=== PATIENT | male | born 1965 | race Caucasian/White ===

== ENCOUNTER 2021-12-16 07:47 | Inpatient (IN) | payer BC ==
[2021-12-16] MEDS ORDERED: Dextrose 5%-0.9% NaCl 1,000 ML ONE (08:32)
[2021-12-16] MEDS ORDERED: Pantoprazole 40 MG Vial ONE ×2 (08:32→20:32)
[2021-12-16 08:51] LABS: ESTIMATED GFR 54 mL/min (>60)
[2021-12-16] MEDS ORDERED: Pantoprazole 40 MG Vial IV ONE (09:00)
[2021-12-16] MEDS ORDERED: Pantoprazole 80 MG in Sodium Chloride 0.9% 100 ML IV ONE (09:08)
[2021-12-16] MEDS ORDERED: Dextrose 5%-0.9% NaCl 1,000 ML IV ONE (09:08)
[2021-12-16] MEDS ORDERED: Lactated Ringers 1,000 ML ONE ×3 (11:13→23:21)
[2021-12-16] MEDS ORDERED: Lactated Ringers 1,000 ML IV ONE (11:15)
[2021-12-16] MEDS ORDERED: Potassium Chloride 100 ML ONE (16:26)
[2021-12-16] MEDS ORDERED: Potassium Chloride 100 ML IV ONE (16:30)
[2021-12-16] MEDS ORDERED: Sodium Chloride 0.9% 250 ML ONE (17:59)
[2021-12-17] MEDS ORDERED: Sodium Chloride 0.9% 500 ML ONE (04:04)
[2021-12-17] MEDS ORDERED: Pantoprazole 40 MG Vial ONE (09:15)
[2021-12-17] MEDS ORDERED: Sodium Chloride 0.9% 250 ML ONE (10:00)
[2021-12-17] MEDS ORDERED: Propofol 200 MG/20 ML SDV ONE (10:09)
[2021-12-17] MEDS ORDERED: Lidocaine 1% 4 ML ONE (10:09)
[2021-12-17] MEDS ORDERED: fentaNYL 100 MCG/2 ML SDV ONE (10:10)
[2021-12-17] MEDS ORDERED: Lactated Ringers 1,000 ML IV ONE (15:03)
[2021-12-17] MEDS ORDERED: Pantoprazole 40 MG Vial IV ONE (20:35)
[2021-12-18] MEDS ORDERED: HYDROmorphone 0.5 MG/0.5 ML Syringe IV ONE ×3 (01:30→19:58)
[2021-12-18] MEDS ORDERED: Pantoprazole 40 MG Vial IV ONE ×2 (09:00→21:00)
[2021-12-18] MEDS ORDERED: Furosemide 20 MG/2 ML VIAL IV ONE ×2 (11:24→14:02)
[2021-12-18] MEDS ORDERED: Ondansetron 4 MG/2 ML SDV IV ONE (19:59)
[2021-12-20] MEDS ORDERED: HYDROmorphone 0.5 MG/0.5 ML Syringe IV ONE (04:55)
[2021-12-20] MEDS ORDERED: Acetaminophen 325 MG Tab PO ONE ×2 (08:47→16:03)
[2021-12-20] MEDS ORDERED: Lactated Ringers 1,000 ML IV ONE (08:47)
[2021-12-20] MEDS ORDERED: Lidocaine 4% 1 each Patch TOP ONE (09:00)
[2021-12-20] MEDS ORDERED: Pantoprazole 40 MG Vial IV ONE ×2 (09:00→21:00)
[2021-12-20] MEDS ORDERED: Potassium Chloride 20 MEQ Tab.ER PO ONE (16:00)
[2021-12-20] MEDS ORDERED: oxyCODONE 5 MG Tab PO ONE (21:42)
== END 2021-12-21 13:30 | disposition still patient (30) | DRG 663 ==
LOC: JD.ED 07:47 → JD.ZCENSUS 15:20 → JD.ED 15:30
PROVIDERS: ATTEND Internal Medicine
PROC: 30233N1 Transfusion of Nonautologous Red Blood Cells into Peripheral Vein, Percutaneous Approach (ICD-10-PCS; 2021-12-16)
PROC: 30233K1 Transfusion of Nonautologous Frozen Plasma into Peripheral Vein, Percutaneous Approach (ICD-10-PCS; 2021-12-16)
PROC: 0DB38ZX Excision of Lower Esophagus, Via Natural or Artificial Opening Endoscopic, Diagnostic (ICD-10-PCS; principal; 2021-12-17)
PROC: 0DB68ZX Excision of Stomach, Via Natural or Artificial Opening Endoscopic, Diagnostic (ICD-10-PCS; 2021-12-17)
DX: D62 Acute posthemorrhagic anemia (principal); K20.91 Esophagitis, unspecified with bleeding; I10 Essential (primary) hypertension; K44.9 Diaphragmatic hernia without obstruction or gangrene; K31.89 Other diseases of stomach and duodenum; N17.9 Acute kidney failure, unspecified; E87.6 Hypokalemia; E78.5 Hyperlipidemia, unspecified; Z79.899 Other long term (current) drug therapy
CPT/HCPCS: 00731; 36415; 36430; 80048; 80053; 80076; 81001; 83690; 83735; 85018; 85025; 85610; 85730; 86140; 86850; 86900; 86901; 86922; 93005; 96365; 96366; 96376; 99285-25; A9270-GY; C9113; J1170; J1940; J2405; J2704; J3010; J3480; J7042; J7120; P9016; P9017

== ENCOUNTER 2022-01-05 08:41 | Day surgery (SDC) | payer BC ==
[~2022-01-05 08:41] MED LIST: Lactated Ringers 1,000 ML IV SCH; Lidocaine 1%/Sod Bicarbonate in NS 8.4% 1 ML Syringe IDERM PRN; Sodium Chloride 0.9% 10 ML Syringe FLUSH PRN; Sodium Chloride 0.9% 10 ML Syringe FLUSH SCH
[2022-01-05] MEDS ORDERED: Rocuronium 50 MG/5 ML Vial ONE (09:43)
[2022-01-05] MEDS ORDERED: Ondansetron 4 MG/2 ML SDV ONE (09:43)
[2022-01-05] MEDS ORDERED: Propofol 200 MG/20 ML SDV ONE (09:44)
[2022-01-05] MEDS ORDERED: Midazolam 1 MG/ML 2 ML SDV ONE (09:44)
[2022-01-05] MEDS ORDERED: fentaNYL 100 MCG/2 ML SDV ONE (09:44)
[2022-01-05] MEDS ORDERED: Lidocaine 1% 4 ML ONE (09:45)
[2022-01-05 09:55] LABS: ESTIMATED GFR 78 mL/min (>60)
[2022-01-05] MEDS ORDERED: Lidocaine 1% with EPINEPHrine 1:100,000 10 ML MDV ONE ×2 (10:31→10:32)
[2022-01-05] MEDS ORDERED: Bupivacaine 0.25%/EPINEPHrine 1:200,000 30 ML SDV ONE (10:31)
[2022-01-05] MEDS ORDERED: Lidocaine 1% 2 ML ONE ×3 (12:29→12:53)
[2022-01-05] MEDS ORDERED: EPINEPHrine 1 MG/ML SDV ONE (12:30)
[2022-01-05] MEDS ORDERED: Sodium Chloride 0.9% 50 ML SDV ONE (12:32)
[2022-01-05] MEDS ORDERED: Phenylephrine HCl In 0.9% NaCl 1 MG/10 ML Vial ONE (12:36)
[2022-01-05] MEDS ORDERED: Neostigmine Methylsulfate 10 MG/10 ML MDV ONE (12:56)
[2022-01-05] MEDS ORDERED: Ondansetron 4 MG/2 ML SDV IVPUSH PRN (13:22)
[2022-01-05] MEDS ORDERED: HYDROmorphone 0.5 MG/0.5 ML Syringe IVPUSH PRN (13:22)
[2022-01-05] MEDS ORDERED: fentaNYL 100 MCG/2 ML SDV IVPUSH PRN (13:22)
== END 2022-01-05 15:05 | disposition home or self-care (01) ==
LOC: JD.SDS 08:41
PROVIDERS: ATTEND Surgery
DX: C49.A2 Gastrointestinal stromal tumor of stomach (principal); I10 Essential (primary) hypertension; E78.00 Pure hypercholesterolemia, unspecified; Z91.048 Other nonmedicinal substance allergy status; Z79.899 Other long term (current) drug therapy; Z98.890 Other specified postprocedural states
CPT/HCPCS: 36415; 43251; 80053; 85025; 86850; 86900; 86901; J0171; J2250; J2405; J2704; J2710; J3010; J7120; 00731

== ENCOUNTER 2023-02-12 17:37 | Observation (INO) | payer BC ==
[2023-02-12] MEDS ORDERED: Lactated Ringers 1,000 ML IV ONE (18:06)
[2023-02-12] MEDS ORDERED: Sodium Chloride 0.9% 10 ML Syringe FLUSH PRN (18:07)
[2023-02-12] MEDS ORDERED: Apixaban 5 MG Tab PO ONE (18:11)
[2023-02-12] MEDS ORDERED: Digoxin 500 MCG/2 ML Amp IVPUSH ONE (18:11)
[2023-02-12] MEDS ORDERED: Sodium Chloride 0.9% 1,000 ML IV ONE (18:12)
[2023-02-12 18:20] LABS: BASOPHILS PERCENT AUTO 0.3 % (0.0-1.0); EOSINOPHILS ABSOLUTE AUTO 0.1 K/mm3 (0.0-0.4); EOSINOPHILS PERCENT AUTO 1.1 % (0.0-6.0); HEMATOCRIT 48.7 % (42.0-52.0); HEMOGLOBIN 16.3 gm/dl (14.0-18.0); IMMATURE GRAN ABSOLUTE AUTO 0.03 K/mm3 (0.00-0.05); IMMATURE GRAN PERCENT AUTO 0.3 % (0.0-0.4); LYMPHOCYTES ABSOLUTE AUTO 1.9 K/mm3 (1.0-4.8); MEAN CORPUSCULAR HEMOGLOBIN 30.2 pg (28.0-32.0); MEAN CORPUSCULAR HGB CONC 33.5 g/dl (32.0-36.0); MEAN CORPUSCULAR VOLUME 90.4 fl (83.0-99.0); MEAN PLATELET VOLUME 8.6 fl (9.4-12.4); MONOCYTES ABSOLUTE AUTO 0.9 K/mm3 (0.0-0.8); MONOCYTES PERCENT AUTO 9.4 % (0.0-8.0); NEUTROPHILS ABSOLUTE AUTO 6.4 K/mm3 (1.8-7.7); NEUTROPHILS PERCENT AUTO 68.9 % (41.0-71.0); PLATELET COUNT,PLT 300 K/mm3 (150-400); RED BLOOD CELL COUNT 5.39 M/mm3 (4.52-5.90); WHITE BLOOD CELL COUNT,WBC 9.29 K/mm3 (3.9-11.3)
[2023-02-12 18:50] LABS: A/G RATIO 0.8 (1-2); ALBUMIN 3.1 g/dl (3.4-5.0); ANION GAP 13.1 (5-15); BILIRUBIN TOTAL 0.4 mg/dL (0.2-1.0); BUN/CREATININE RATIO 17.3 (14-18); CALCIUM 9.3 mg/dL (8.5-10.1); CREATININE 1.1 mg/dL (0.7-1.3); EST CRCL DRUG DOSING (CG) 71.41 mL/min; MAGNESIUM 1.9 mg/dL (1.8-2.4); POTASSIUM,K 3.1 mEq/L (3.5-5.1); PROTEIN TOTAL,TP 7.2 g/dl (6.4-8.2); T4 FREE 1.23 ng/dL (0.76-1.46); TSH 1.458 uIU/mL (0.358-3.74)
[2023-02-12] MEDS ORDERED: Diltiazem 25 MG/5 ML SDV IVPUSH ONE (18:51)
[2023-02-12] MEDS ORDERED: Potassium Chloride 20 MEQ Tab.ER PO ONE (18:56)
[2023-02-12] MEDS ORDERED: Diltiazem 180 MG Cap.CD PO ONE (19:08)
[2023-02-12] MEDS ORDERED: Diltiazem 125 MG in Sodium Chloride 0.9% 100 ML IV SCH (19:30)
[2023-02-12] MEDS ORDERED: Docusate Sodium 100 MG Cap PO PRN (20:08)
[2023-02-12] MEDS ORDERED: Ondansetron 4 MG/2 ML SDV IV PRN (20:08)
[2023-02-12] MEDS ORDERED: Ondansetron 4 MG Tab.DIS PO PRN (20:08)
[2023-02-12] MEDS ORDERED: Acetaminophen 325 MG Tab PO PRN (20:08)
[2023-02-12] MEDS: Diltiazem IR 60 MG Tab PO SCH (21:31)
[2023-02-12] MEDS: Apixaban 5 MG Tab PO SCH (21:31)
[2023-02-13] MEDS: Diltiazem IR 60 MG Tab PO SCH ×2 (00:07→05:01)
[2023-02-13 05:35] LABS: ANION GAP 10.9 (5-15); BUN/CREATININE RATIO 13.6 (14-18); CALCIUM 8.4 mg/dL (8.5-10.1); CREATININE 1.1 mg/dL (0.7-1.3); EST CRCL DRUG DOSING (CG) 71.41 mL/min; POTASSIUM,K 3.9 mEq/L (3.5-5.1)
[2023-02-13] MEDS: Apixaban 5 MG Tab PO SCH (08:17)
[2023-02-13] MEDS ORDERED: Diltiazem 120 MG Cap.CD PO ONE (09:08)
== END 2023-02-13 10:44 | disposition home or self-care (01) ==
LOC: JD.ED 17:37 → INTOOBSV 20:08 → JD.ICU 20:08
PROVIDERS: ADMIT Hospitalist; ATTEND Hospitalist
DX: I48.20 Chronic atrial fibrillation, unspecified (principal); I10 Essential (primary) hypertension; E78.00 Pure hypercholesterolemia, unspecified; Z91.09 Other allergy status, other than to drugs and biological substances; Z79.899 Other long term (current) drug therapy; Z90.49 Acquired absence of other specified parts of digestive tract
CPT/HCPCS: 36415; 71046; 71046-26; 80048; 80053; 83735; 84439; 84443; 84484; 85025; 93005; 93010; 96365; 96375; 96376; 99221; 99239; 99284; 99285-25; A9270-GY; G0378; J1160; J3490; J7030